=== PATIENT | male | born 1980 | race Asian ===

== ENCOUNTER 2017-03-23 17:39 | Emergency (ER) | payer MEDICAID ==
[~2017-03-23] VITALS: Ht 177.8 cm; Wt 117.9 kg
[2017-03-23 17:39] VITALS: BP_SYST 99
[2017-03-23] MEDS ORDERED: ASPIRIN 325 MG TABLET PO ONE (18:15)
== END 2017-03-23 18:40 | disposition left against medical advice (07) ==
LOC: SED 17:39
DX: F41.9 Anxiety disorder, unspecified (principal); F17.200 Nicotine dependence, unspecified, uncomplicated
CPT/HCPCS: 93005; 99283

== ENCOUNTER 2021-03-17 09:33 | Emergency (ER) | payer MEDICAID ==
[~2021-03-17] VITALS: Ht 177.8 cm; Wt 111.1 kg
--- NOTE | 2021-03-17 09:40 | NUR ---
Patient to ER bed 6 to gown for evaluation. Side rails up. Report given to BECKY
[2021-03-17 09:47] VITALS: BP_SYST 128
--- NOTE | 2021-03-17 09:57 | NUR ---
DR GONZALEZ IN TO ASSESS
[2021-03-17] MEDS ORDERED: ASPIRIN 81 MG TAB.CHEW PO ONE (10:30)
[2021-03-17] MEDS ORDERED: KETOROLAC TROMETHAMINE 30 MG VIAL IVP ONE (10:30)
[2021-03-17 10:51] LABS: BASOPHILS # (AUTO) 0.2 K/uL (0.0-0.2); BASOPHILS % (AUTO) 2.3 % (0.0-2.0); EOSINOPHILS # (AUTO) 0.2 K/uL (0.0-0.4); EOSINOPHILS % (AUTO) 2.7 % (0.0-4.0); HEMATOCRIT 46.4 % (36-54); HEMOGLOBIN 15.6 g/dL (14.0-18.0); LYMPHOCYTES % (AUTO) 22.1 % (20.5-51.5); MEAN CORPUSCULAR HEMOGLOBIN 31 pg (27-31); MEAN CORPUSCULAR HGB CONC 34 % (32-36); MEAN CORPUSCULAR VOLUME 91 fL (79.0-98.0); MONOCYTES # (AUTO) 0.7 K/uL (0.0-1.0); MONOCYTES % (AUTO) 8.2 % (1.7-9.3); NEUTROPHILS # (AUTO) 5.9 K/uL (1.8-7.7); NEUTROPHILS % (AUTO) 64.7 % (40.0-70.0); PLATELET COUNT (AUTO) 203 K/uL (130-430); RED BLOOD CELL COUNT(AUTO) 5.13 MIL/uL (4.2-6.2); RED CELL DISTRIBUTION WIDTH 13.4 % (9.0-15.0); WHITE BLOOD COUNT (AUTO) 9.1 K/uL (4.8-10.8)
[2021-03-17 11:05] LABS: CALCIUM 8.8 mg/dL (8.4-11.0); CREATININE 0.9 mg/dL (0.55-1.30)
--- NOTE | 2021-03-17 11:05 | NUR ---
CALM, ALERT, VSS, NS ON MONITOR NO ECTOPY, RESP UNLABOR
[2021-03-17 11:10] LABS: ALBUMIN 3.5 g/dL (3.4-4.8); TOTAL BILIRUBIN 0.4 mg/dL (0.0-1.0)
--- NOTE | 2021-03-17 12:20 | NUR ---
DENIES CP. RESP UNLABORED, SKIN WARM AND DRY. NO DISTRESS
[2021-03-17 13:40] VITALS: BP_SYST 115
--- NOTE | 2021-03-17 13:42 | NUR ---
Patient given written and verbal discharge instructions and verbalizes understanding. LIOR GONZALEZ MD discussed with patient the results and treatment provided. Patient in stable condition. ID arm band removed. IV catheter removed intact and dressing applied, no active bleeding. Patient educated on pain management and to follow up with PMD. Pain Scale 0/10. Opportunity for questions provided and answered. Medication side effect fact sheet provided.
== END 2021-03-17 13:40 | disposition home or self-care (01) ==
LOC: SED 09:33
DX: R07.89 Other chest pain (principal); I10 Essential (primary) hypertension; E11.9 Type 2 diabetes mellitus without complications; J45.909 Unspecified asthma, uncomplicated
CPT/HCPCS: 36415; 71045; 80053; 83880; 84484; 85025; 93005; 96374; 99285; J1885